=== PATIENT | female | born 1950 | race Caucasian/White ===

== ENCOUNTER → 2023-02-11 | Outpatient (CLI) | payer MEDICARE | LOC: M PLARAD 09:33 | PROVIDERS: ATTEND Nurse Practitioner Family | DX: R91.1 Solitary pulmonary nodule (principal) | CPT/HCPCS: 78815; A9552 ==

== ENCOUNTER → 2023-02-14 | Outpatient (CLI) | payer MEDICARE, OTHER | LOC: M CARPUL 10:40 | PROVIDERS: ATTEND Internal Medicine Critical Care Medicine | DX: J44.9 Chronic obstructive pulmonary disease, unspecified (principal) ==

== ENCOUNTER → 2023-03-06 | Outpatient (CLI) | payer MEDICARE, OTHER ==
[~2023-03-06] MED LIST: BIMA01SOL OU; CVS27TAB2 PO; INCR1INH INH
== END ==
LOC: M PLAIMG 09:05
PROVIDERS: ATTEND Internal Medicine Critical Care Medicine
DX: R91.8 Other nonspecific abnormal finding of lung field (principal); I70.0 Atherosclerosis of aorta; I25.10 Atherosclerotic heart disease of native coronary artery without angina pectoris; J44.9 Chronic obstructive pulmonary disease, unspecified; D35.01 Benign neoplasm of right adrenal gland

== ENCOUNTER 2023-03-13 06:41 | Day surgery (SDC) | payer MEDICARE, OTHER ==
[~2023-03-13] VITALS: Ht 144.8 cm; Wt 44.0 kg
[~2023-03-13 06:41] MED LIST changes: +ALBUTEROL SULFATE 2.5MG/0.5ML INH NEB SOLN INH ONE; +LIDOCAINE PRES-FREE 2% 10ML AMP INH ONE
[2023-03-13] MEDS ORDERED: LR 1,000 ML IV SCH ×2 (07:05→10:25)
[2023-03-13] MEDS ORDERED: MIDAZOLAM INJ 2MG/2ML VIAL As Ordered ONE (07:15)
[2023-03-13] MEDS ORDERED: ROCURONIUM BROMIDE 50MG/5ML VIAL As Ordered ONE (07:15)
[2023-03-13] MEDS ORDERED: SUGAMMADEX SODIUM 500 MG/5 ML VIAL (BRIDION) As Ordered ONE (07:15)
[2023-03-13] MEDS ORDERED: fentaNYL 100 MCG/2 ML INJECTION As Ordered ONE (07:15)
[2023-03-13] MEDS ORDERED: LIDOCAINE 2% 100MG/5ML SDV (FOR ANES.) As Ordered ONE (07:15)
[2023-03-13] MEDS ORDERED: ONDANSETRON 4MG 2ML VIAL As Ordered ONE (07:16)
[2023-03-13] MEDS ORDERED: propofoL 200 MG/20 ML VIAL As Ordered ONE (07:19)
[2023-03-13] MEDS ORDERED: PHENYLephrine 500MCG 5ML (100MCG/ML) SYRINGE As Ordered ONE (08:14)
[2023-03-13] MEDS ORDERED: THROMBIN 5,000 UNITS VIAL As Ordered ONE (08:49)
[2023-03-13] MEDS ORDERED: EPINEPHrine 1MG/10ML SYRINGE 1.5IN As Ordered ONE (08:49)
[2023-03-13] MEDS ORDERED: CETACAINE SPRAY 5GM As Ordered ONE (08:49)
[2023-03-13] MEDS ORDERED: EPINEPHrine INJ 1 MG/ML 1ML AMP As Ordered ONE (08:49)
[2023-03-13] MEDS ORDERED: ePHEDrine SULFATE 25 MG/5 ML(5MG/ML) SYRINGE As Ordered ONE (09:25)
[2023-03-13] MEDS ORDERED: fentaNYL 100 MCG/2 ML INJECTION IV PRN (10:25)
[2023-03-13] MEDS ORDERED: oxyCODONE 5MG TAB PO PRN (10:25)
[2023-03-13] MEDS ORDERED: ONDANSETRON 4MG 2ML VIAL IV PRN (10:25)
[2023-03-13 11:35] VITALS: BP 123/59; TEMP 98.4; O2SAT 95
[2023-04-05] MEDS ORDERED: RED1TAB. PO (11:40)
[2023-04-05] MEDS ORDERED: SYST1SOL4 OP (11:40)
[2023-04-05] MEDS ORDERED: CITRTAB18 PO (11:40)
[2023-04-05] MEDS ORDERED: GNP250TA9 PO (11:40)
[2023-04-05] MEDS ORDERED: EQL50TAB2 PO (11:40)
[2023-04-05] MEDS ORDERED: TARTCAP PO (11:40)
[2023-04-05] MEDS ORDERED: CVS500CA5 PO (11:40)
[2023-04-05] MEDS ORDERED: SUGAR BLOCKER (11:40)
[2023-04-05] MEDS ORDERED: [UNRECOGNIZED DRUG - OTHER] (11:40)
[2023-04-05] MEDS ORDERED: CINN500C2 PO (11:40)
[2023-04-05] MEDS ORDERED: GARL500C2 PO (11:40)
[2023-04-05] MEDS ORDERED: OCUV1CAP4 PO (11:40)
[2023-04-05] MEDS ORDERED: [UNRECOGNIZED DRUG - CODE] PO (11:40)
[2023-04-05] MEDS ORDERED: VITA500C24 PO (11:40)
[2023-04-05] MEDS ORDERED: CENT1TAB PO (11:40)
[2023-04-05] MEDS ORDERED: TETR15DR2 OP (11:40)
[2023-04-05] MEDS ORDERED: OCUV1CHW PO (11:40)
[2023-04-05] MEDS ORDERED: APPLTAB2 PO (11:40)
[2023-04-05] MEDS ORDERED: CVS1CHW13 PO (11:40)
[2023-04-05] MEDS ORDERED: COQ1200C3 PO (11:40)
[2023-04-05] MEDS ORDERED: TUME1CAP PO (11:40)
== END 2023-03-13 11:40 | disposition home or self-care (01) ==
LOC: M SDC 06:41
PROVIDERS: ATTEND Internal Medicine Critical Care Medicine
DX: C34.11 Malignant neoplasm of upper lobe, right bronchus or lung (principal); J44.9 Chronic obstructive pulmonary disease, unspecified; D64.9 Anemia, unspecified; G47.33 Obstructive sleep apnea (adult) (pediatric); R73.03 Prediabetes; F17.218 Nicotine dependence, cigarettes, with other nicotine-induced disorders; M50.13 Cervical disc disorder with radiculopathy, cervicothoracic region; Z79.899 Other long term (current) drug therapy; Z88.8 Allergy status to other drugs, medicaments and biological substances; Z79.51 Long term (current) use of inhaled steroids
CPT/HCPCS: 31654; 71045; 76000; 87070; 87077; 87186; 87205; 88173; 88305; 93005; J1100; J2250; J2405; J3010; S2900

== ENCOUNTER → 2023-04-05 | Outpatient (CLI) | payer MEDICARE, OTHER ==
[~2023-04-05] MED LIST changes: -ALBUTEROL SULFATE 2.5MG/0.5ML INH NEB SOLN INH ONE; +APPLTAB2 PO; +CENT1TAB PO; +CINN500C2 PO; +CITRTAB18 PO; +COQ1200C3 PO; +CVS1CHW13 PO; +CVS500CA5 PO; +EQL50TAB2 PO; +GARL500C2 PO; +GNP250TA9 PO; -LIDOCAINE PRES-FREE 2% 10ML AMP INH ONE; +OCUV1CAP4 PO; +OCUV1CHW PO; +RED1TAB. PO; +SUGAR BLOCKER; +SYST1SOL4 OP; +TARTCAP PO; +TETR15DR2 OP; +TUME1CAP PO; +VITA500C24 PO; +[UNRECOGNIZED DRUG - CODE] PO; +[UNRECOGNIZED DRUG - OTHER]
== END ==
LOC: M ONCR 10:29
PROVIDERS: ATTEND General Practice
DX: C34.11 Malignant neoplasm of upper lobe, right bronchus or lung (principal); Z71.2 Person consulting for explanation of examination or test findings; Z79.899 Other long term (current) drug therapy; Z80.0 Family history of malignant neoplasm of digestive organs; Z80.3 Family history of malignant neoplasm of breast; Z88.8 Allergy status to other drugs, medicaments and biological substances; Z87.891 Personal history of nicotine dependence; Z98.51 Tubal ligation status

== ENCOUNTER → 2023-06-05 | Outpatient (CLI) | payer MEDICARE, OTHER ==
[~2023-06-05] MED LIST changes: +ACET650T15 PO; +ALBU8.5H; +AMIO200T49; +CHOL1CAP PO; +COLLAGEN PO; +GABA-1171; +GABA-282; +KP F1200 PO; +LANC-66; +LIDO1CRE2 TOP; +ONETTES13; +OXYC-517; +TIZA2TA
== END ==
LOC: M IRPRO 06:59
PROVIDERS: ATTEND Internal Medicine Medical Oncology
DX: C34.90 Malignant neoplasm of unspecified part of unspecified bronchus or lung (principal)

== ENCOUNTER → 2023-07-01 | Outpatient (CLI) | payer MEDICARE, OTHER ==
[~2023-07-01] VITALS: Ht 146.7 cm; Wt 46.5 kg
[~2023-07-01] MED LIST changes: -ALBU8.5H; +ALBU8.5H INH; +COLLPOW8 PO; +LIDOCAINE 1% MDV 20ML VIAL As Ordered ONE; +LIDOCAINE W/EPINEPHRINE 1% 20ML VIAL As Ordered ONE; +LR 1,000 ML IV SCH; +MIDAZOLAM INJ 2MG/2ML VIAL As Ordered ONE; +NS 1,000 ML IV SCH; -OXYC-517; +OXYC-517 PO; -SUGAR BLOCKER; +SUGAR BLOCKER PO; -[UNRECOGNIZED DRUG - OTHER]; +[UNRECOGNIZED DRUG - OTHER] PO; +ceFAZolin 2 GM/D5W 50 ML IV BAG As Ordered ONE; +fentaNYL 100 MCG/2 ML INJECTION As Ordered ONE
[2023-07-01 12:25] VITALS: TEMP 98.5
[2023-07-01] MEDS: ceFAZolin SOD 2 GM in IV 1 EA IV ONE (12:45)
[2023-07-01 14:30] VITALS: BP 102/53; O2SAT 98
== END ==
LOC: M IRPRO 12:07
PROVIDERS: ATTEND Internal Medicine Medical Oncology
DX: C34.90 Malignant neoplasm of unspecified part of unspecified bronchus or lung (principal)
CPT/HCPCS: 36561; 99152; 99153; J0690; J2250; J3010

== ENCOUNTER → 2023-10-01 | Outpatient (CLI) | payer MEDICARE, OTHER ==
[~2023-10-01] MED LIST changes: +CRAN500C11 PO; -CVS500CA5 PO; -GARL500C2 PO; +GARL500C6 PO; +GASTROGRAFIN SOLUTION 30ML As Ordered ONE; +ISOVUE-370 76% 100ML VIAL As Ordered ONE; -LIDOCAINE 1% MDV 20ML VIAL As Ordered ONE; -LIDOCAINE W/EPINEPHRINE 1% 20ML VIAL As Ordered ONE; -LR 1,000 ML IV SCH; -MIDAZOLAM INJ 2MG/2ML VIAL As Ordered ONE; -NS 1,000 ML IV SCH; +ONDA8TAB8 PO; -ceFAZolin 2 GM/D5W 50 ML IV BAG As Ordered ONE; -fentaNYL 100 MCG/2 ML INJECTION As Ordered ONE
== END ==
LOC: M RAD 13:43
PROVIDERS: ATTEND Internal Medicine Medical Oncology
DX: C34.90 Malignant neoplasm of unspecified part of unspecified bronchus or lung (principal); D35.00 Benign neoplasm of unspecified adrenal gland
CPT/HCPCS: 71260; 74177; Q9963; Q9967

== ENCOUNTER → 2024-04-21 | Outpatient (CLI) | payer MEDICARE, OTHER ==
[~2024-04-21] MED LIST changes: -CRAN500C11 PO; +CVS500CA5 PO; +GABA-1172; -GABA-282; -GASTROGRAFIN SOLUTION 30ML As Ordered ONE; -ISOVUE-370 76% 100ML VIAL As Ordered ONE; -LIDO1CRE2 TOP; +LIDO4CRE12 TOP; +ONDA-284 PO; -ONDA8TAB8 PO; +TETR15DR16 OP; -TETR15DR2 OP
[2024-04-21 09:59] LABS: BASO # 0.1 10^3/uL (0.0-0.2); EOS # 0.2 10^3/uL (0.0-0.5); EOS % 4.2 % (0.0-3.0); HEMATOCRIT 31.6 % (36.0-47.0); HEMOGLOBIN 10.5 g/dl (12.0-15.5); LYMPH # 1.2 10^3/uL (1.5-5.0); LYMPH % 20.2 % (24.0-44.0); MEAN CORPUSCULAR HEMOGLOBIN 30.3 pg (27.0-33.0); MEAN CORPUSCULAR HGB CONC 33.2 g/dl (32.0-36.5); MEAN CORPUSCULAR VOLUME 91.1 fl (80.0-96.0); MONO # 0.6 10^3/uL (0.0-0.8); MONO % 9.9 % (2.0-8.0); NEUTROPHILS # 3.7 10^3/uL (1.5-8.5); NEUTROPHILS % 64.2 % (36.0-66.0); PLATELET COUNT, AUTOMATED 326 10^3/uL (150-450); RED BLOOD COUNT 3.47 10^6/uL (4.00-5.40); WHITE BLOOD COUNT 5.7 10^3/uL (4.0-10.0)
[2024-04-21 11:09] LABS: ALBUMIN 3.3 G/DL (3.2-5.2); ALKALINE PHOSPHATASE 82 U/L (35-104); ALT/SGPT 14 U/L (7.0-40); AST/SGOT 15 U/L (<34); BILIRUBIN,TOTAL 0.3 MG/DL (0.3-1.2); BLOOD UREA NITROGEN 17 MG/DL (9-23); CALCIUM LEVEL 9.6 MG/DL (8.3-10.6); CARBON DIOXIDE LEVEL 28 MMOL/L (20-31); CHLORIDE LEVEL 108 MMOL/L (98-107); CREATININE FOR GFR 0.92 MG/DL (0.55-1.30); GLOMERULAR FILTRATION RATE > 60.0 (>39); GLUCOSE, FASTING 99 MG/DL (74-106); POTASSIUM SERUM 4.8 MMOL/L (3.5-5.1); SODIUM LEVEL 143 MMOL/L (136-145); TOTAL PROTEIN 6.9 G/DL (5.7-8.2)
== END ==
LOC: M LAB 09:22
PROVIDERS: ATTEND Internal Medicine Medical Oncology
DX: C34.90 Malignant neoplasm of unspecified part of unspecified bronchus or lung (principal)

== ENCOUNTER → 2024-11-23 | Outpatient (CLI) | payer MEDICARE, OTHER ==
[~2024-11-23] MED LIST changes: -AMIO200T49; +AMIO200T54; -EQL50TAB2 PO; +ISOVUE-370 76% 100 ML VIAL As Ordered ONE; +VITA1TAB82 PO
== END ==
LOC: M RAD 11:26
PROVIDERS: ATTEND Internal Medicine Medical Oncology
DX: C34.91 Malignant neoplasm of unspecified part of right bronchus or lung (principal)
CPT/HCPCS: 71260; 82565; Q9967

== ENCOUNTER → 2025-01-26 | Outpatient (CLI) | payer MEDICARE, OTHER ==
[~2025-01-26] VITALS: Ht 144.8 cm; Wt 50.0 kg
[~2025-01-26] MED LIST changes: +ACET-1515 PO; -ACET650T15 PO; -ISOVUE-370 76% 100 ML VIAL As Ordered ONE; +VANCOMYCIN HCL 1,000 MG, VIAL MATE ADAPTER 1 EACH in NS 250 ML IV ONE
[2025-01-26 10:15] VITALS: TEMP 97.5
[2025-01-26] MEDS: NS (Normal Saline) 0.9% 1,000 ML IV SCH (11:09)
[2025-01-26] MEDS: ceFAZolin SODIUM 2 GM in DEXTROSE 5% (D5W) ADV/MINI-BAG 50 ML IV ONE (11:09)
[2025-01-26] MEDS: MIDAZOLAM INJ 2 MG/2 ML VIAL IV PRN (11:16)
[2025-01-26] MEDS: LIDOCAINE 1% MDV 20 ML VIAL SC SCH (11:28)
[2025-01-26 12:00] VITALS: BP 138/63; O2SAT 98
== END ==
LOC: M IRPRO 09:57
DX: C34.91 Malignant neoplasm of unspecified part of right bronchus or lung (principal)
CPT/HCPCS: 36590; 99152; J0688; J2250; J3010